=== PATIENT | female | born 1945 | race Hispanic/Latino ===

== ENCOUNTER 2018-08-11 19:49 | Emergency (ER) | payer MEDICARE, OTHER ==
[2018-08-11 20:08] VITALS: O2SAT 99
--- NOTE | 2018-08-11 21:14 | C.PDOC ---
History Of Present Illness 72 year old female with PMHx of HTN presents to the ED c/o elevated blood pressure. Patient reports she checks her blood pressure at home multiple times during the day. Patient went to see her recreation therapy aide today and had a normal echocardiogram done. Patient went home and rechecked her blood pressure again multiple times. 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 As per Family patient check her blood pressure multiple times during the day, has anxiety concerns about her blood pressure. Patient chooses to take her blood pressure medications when depending on the blood pressure reading she gets at home. Patient denies visual changes, headache, nausea, vomit, CP, palpitations, SOB. Time Seen by Provider: 08/11/18 21:07 Chief Complaint (Nursing): High Blood Pressure History Per: Patient History/Exam Limitations: no limitations Onset/Duration Of Symptoms: Days Current Symptoms Are (Timing): Still Present Quality Of Symptoms: Asymptomatic Exacerbating Factor(s): Pos: Recently Missed Doses Of Medication Recent travel outside of the [place]: No Additional History Per: Patient Past Medical History Reviewed: Historical Data, Nursing Documentation, Vital Signs Vital Signs: Last Vital Signs Temp 98.5 F 08/11/18 20:02 Pulse 78 08/11/18 20:02 Resp 20 08/11/18 20:02 BP 155/97 H 08/11/18 20:12 Pulse Ox 99 08/11/18 20:02 - Medical History PMH: Gastritis, HTN Surgical History: No Surg Hx Family History: States: Unknown Family Hx - Social History Hx Alcohol Use: No Hx Substance Use: No - Immunization History Hx Tetanus Toxoid Vaccination: No Hx Influenza Vaccination: No Review Of Systems Constitutional: Negative for: Fever, Chills Eyes: Negative for: Vision Change Cardiovascular: Negative for: Chest Pain, Palpitations Respiratory: Negative for: Cough, Shortness of Breath Gastrointestinal: Negative for: Nausea, Vomiting, Abdominal Pain Neurological: Negative for: Weakness, Numbness Physical Exam - Physical Exam Appears: Non-toxic, No Acute Distress Skin: Normal Color, Warm, Dry Head: Atraumatic, Normacephalic Eye(s): bilateral: Normal Inspection Neck: Normal ROM, Supple Chest: Symmetrical Cardiovascular: Rhythm Regular Respiratory: Normal Breath Sounds, No Rales, No Rhonchi, No Wheezing Gastrointestinal/Abdominal: Soft, No Tenderness, No Guarding, No Rebound Extremity: Normal ROM, No Tenderness, No Swelling Neurological/Psych: Oriented x3, Normal Speech, Normal Cognition Gait: Steady ED Course And Treatment O2 Sat by Pulse Oximetry: 99 (ON RA) Pulse Ox Interpretation: Normal Medical Decision Making Medical Decision Making: benign elev bP seen by Cardio TODAY with normal card echo BP normalized in ED without further tx ? anxiety Patient was extensively about not checking blood pressure at home, except for 2- 3 times a month. Disposition Doctor Will See Patient In The: Office Counseled Patient/Family Regarding: Studies Performed, Diagnosis - Disposition Referrals: Baron Lagunas [Staff Provider] - Disposition: HOME/ ROUTINE Disposition Time: 21:13 Condition: GOOD Additional Instructions: continue normal BP meds routine do NOT check your BP regularly @ home. Have a glass of wine @ night follow-up with your PMD as usual routine Instructions: High Blood Pressure in Adults Forms: [facility] ([place]) - Clinical Impression Clinical Impression: Hypertension - Scribe Statement The provider has reviewed the documentation as recorded by the Scribe Dayton Apodaca All medical record entries made by the Scribe were at my direction and personally dictated by me. I have reviewed the chart and agree that the record accurately reflects my personal performance of the history, physical exam, medical decision making, and the department course for this patient. I have also personally directed, reviewed, and agree with the discharge instructions and disposition.
[2018-08-11 21:24] VITALS: BP 153/83; PULSE 71; RESP 17; TEMP 98.3
--- NOTE | 2018-08-14 08:00 | CARD ---
APPROVED REPORT Date of service: 08/11/2018 EKG Measurement Heart [id number] <Conclusion> Normal sinus rhythm Normal ECG
== END 2018-08-11 21:35 | disposition home or self-care (01) ==
LOC: C.ER 19:49
DX: I10 Essential (primary) hypertension (principal)

== ENCOUNTER 2018-08-24 20:42 | Emergency (ER) | payer MEDICARE ==
[2018-08-24 21:25] LABS: BASO % 0.4 % (0.0-2.0); EOS # 0.1 K/uL (0.0-0.7); EOS % 1.3 % (0.0-4.0); HEMOGLOBIN 13.7 g/dL (11.0-16.0); MEAN CELL VOLUME 89.1 fL (81.0-99.0); MEAN CORPUSCULAR HEMOGLOBIN 30.5 pg (27.0-31.0); MEAN CORPUSCULAR HGB CONC 34.2 g/dL (33.0-37.0); MEAN PLATELET VOLUME 8.3 fL (7.2-11.7); MONO # 0.7 K/uL (0.0-0.8); NEUT % 63.3 % (50.0-75.0); RBC 4.49 Mil/uL (3.80-5.20); RED CELL DISTRIBUTION WIDTH 13.3 % (11.5-14.5); WHITE BLOOD COUNT 7.8 K/uL (4.8-10.8)
[2018-08-24 21:38] LABS: ALB/GLOB RATIO 1.3 (1.0-2.1); ALBUMIN 4.6 g/dL (3.5-5.0); BLOOD UREA NITROGEN 16 mg/dL (7-17); CALCIUM 9.7 mg/dl (8.6-10.4); GFR NON-AFRICAN AMERICAN > 60
[2018-08-24 21:47] LABS: ALT/SGPT 25 U/L (9-52); AST/SGOT 30 U/L (14-36)
[2018-08-24 22:13] VITALS: BP 156/77; PULSE 62; RESP 14; TEMP 98; O2SAT 99
--- NOTE | 2018-08-25 04:05 | C.PDOC ---
History Of Present Illness 72 year old female presents to the ER for elevated blood pressure. Patient states she checked it 5-6 times at home tonight. She also saw her pulpwood contractor today who told her to take an extra dose of her blood pressure medication. Sudhir es chest pain or SOB. Time Seen by Provider: 08/24/18 20:55 Chief Complaint (Nursing): High Blood Pressure History Per: Patient History/Exam Limitations: no limitations Onset/Duration Of Symptoms: Hrs Current Symptoms Are (Timing): Still Present Associated Symptoms: denies: Chest Pain, Dyspnea, Dizziness, Blurred Vision, Fo chung Weakness, Headache Quality Of Symptoms: Asymptomatic Exacerbating Factor(s): Pos: None Recent travel outside of the [place]: No Past Medical History Reviewed: Historical Data, Nursing Documentation, Vital Signs Vital Signs: Last Vital Signs Temp 98 F 08/24/18 22:03 Pulse 62 08/24/18 22:03 Resp 14 08/24/18 22:03 BP 156/77 H 08/24/18 22:03 Pulse Ox 99 08/24/18 22:03 - Medical History PMH: Gastritis, HTN Family History: States: Unknown Family Hx - Social History Hx Alcohol Use: No Hx Substance Use: No - Immunization History Hx Tetanus Toxoid Vaccination: No Hx Influenza Vaccination: No Review Of Systems Constitutional: Negative for: Fever, Chills Cardiovascular: Negative for: Chest Pain, Palpitations Respiratory: Negative for: Cough, Shortness of Breath Gastrointestinal: Negative for: Nausea, Vomiting Neurological: Negative for: Headache, Dizziness Physical Exam - Physical Exam Appears: Non-toxic Skin: Normal Color, Warm, Dry Head: Atraumatic, Normacephalic Eye(s): bilateral: Normal Inspection, PERRL, EOMI Oral Mucosa: Moist Neck: Normal, Supple Chest: Symmetrical, No Tenderness Cardiovascular: Rhythm Regular Respiratory: Normal Breath Sounds, No Rales, No Rhonchi, No Wheezing Gastrointestinal/Abdominal: Soft, No Tenderness Extremity: Normal ROM (x4) Neurological/Psych: Oriented x3, Normal Speech ED Course And Treatment - Laboratory Results Result Diagrams: 08/24/18 21:22 08/24/18 21:22 O2 Sat by Pulse Oximetry: 99 (Room air) Pulse Ox Interpretation: Normal Progress Note: Blood work ordered. Disposition - Disposition Referrals: [facility], [Non-Staff] - Disposition: HOME/ ROUTINE Disposition Time: 22:00 Condition: GOOD Additional Instructions: KASIA KESSLER, thank you for letting us take care of you today. The emergency medical care you received today was directed at your acute symptoms. If you were prescribed any medication, please fill it and take as directed. It may take several days for your symptoms to resolve. Return to the Emergency Department if your symptoms worsen, do not improve, or if you have any other problems. Please contact your doctor or call one of the physicians/clinics you have been referred to that are listed on the Patient Visit Information form that is included in your discharge packet. Bring any paperwork you were given at dischar ge with you along with any medications you are taking to your follow up visit. Our treatment cannot replace ongoing medical care by a primary care provider outside of the emergency department. Thank you for allowing the [facility] team to be part of your care today. Follow up with your doctor tomorrow as scheduled for a blood pressure check. Instructions: High Blood Pressure in Adults Forms: [facility] ([place]ican) - Clinical Impression Clinical Impression: Hypertension - Scribe Statement The provider has reviewed the documentation as recorded by the Scribe Tee Tineo All medical record entries made by the Scribe were at my direction and per sonally dictated by me. I have reviewed the chart and agree that the record accurately reflects my personal performance of the history, physical exam, medical decision making, and the department course for this patient. I have also personally directed, reviewed, and agree with the discharge instructions and disposition.
== END 2018-08-24 22:24 | disposition home or self-care (01) ==
LOC: C.ER 20:42
DX: I10 Essential (primary) hypertension (principal)